=== PATIENT | female | born 1960 | race Two or more races ===

== ENCOUNTER 2018-02-21 14:50 | Emergency (ER) | payer SELFPAY ==
[2018-02-21] MEDS ORDERED: Morphine VIAL* 10 MG/ML 1 ML VIAL IV ONE (15:58)
[2018-02-21] MEDS ORDERED: NS 0.9% 1000 ML* 1,000 ML IV ONE (15:58)
[2018-02-21] MEDS ORDERED: Ondansetron ODT TAB* 4 MG PO ONE (15:58)
--- NOTE | 2018-02-21 16:08 | ED ---
Abdominal Pain/Female - HPI Summary HPI Summary: This is [place] documenting for Dr. Jonathon Dominguez MD. Pt is a 58 y/o F who presents to ED c/o upper abdominal pain. The pain began this morning and she rated it as an 8/10 in severity. She describes the pain as similar to that which she felt when she had pancreatitis a year ago. Pain radiates to her back. Notes dizziness and feeling cold all over her body per nurses report. Lying down exacerbates the symptoms. Denies constipation, nausea , and vomiting. - History of Current Complaint Chief Complaint: EDAbdPain Stated Complaint: SICKNESS/DIZZINESS/COLD Hx Obtained From: Patient Onset/Duration: Lasting Hours Severity Currently: Severe Pain Intensity: 8 Pain Scale Used: 0-10 Numeric Location: Epigastric Radiates: Yes Radiates to: Back Aggravating Factor(s): Other: - Lying down Associated Signs and Symptoms: Positive: Dizzy. Negative: Nausea, Vomiting, Diarrhea Allergies/Adverse Reactions: Allergies Allergy/AdvReac Type Severity Reaction Status Date / Time Penicillins Allergy Itching Verified 02/21/18 15:03 PMH/Surg Hx/FS Hx/Imm Hx GI History: Reports: Other GI Disorders - Pancreatitis Sensory History: Denies: Hx Deafness - Surgical History Surgery Procedure, Year, and Place: Cholecystectomy Infectious Disease History: No Infectious Disease History: Denies: Traveled Outside the [place] in Last 30 Days - Family History Known Family History: Positive: Hypertension, Diabetes - Social History Alcohol Use: None Substance Use Type: Reports: None Smoking Status (MU): Never Smoked Tobacco Review of Systems Positive: Abdominal Pain, Other - NEGATIVE: constipation. Negative: Vomiting, Diarrhea, Nausea Neurological: Other - Dizziness All Other Systems Reviewed And Are Negative: Yes Physical Exam - Summary Physical Exam Summary: VITAL SIGNS: Reviewed. GENERAL: Patient is a well-developed and nourished female who is lying comfortable in the stretcher. Patient is not in any acute respiratory distress. HEAD AND FACE: Normocephalic and atraumatic. EYES: PERRLA, EOMI x 2, No injected conjunctiva. EARS: Hearing grossly intact. Ear canals and tympanic membranes are WNL. MOUTH: Oropharynx within normal limits. NECK: Supple, trachea is midline, no adenopathy, no JVD. CHEST: Symmetric, no tenderness at palpation LUNGS: Clear to auscultation bilaterally. No wheezing or crackles. CVS: RRR, S1 and S2 present, no murmurs or gallops appreciated. ABDOMEN: Epigastric pain and LUQ tenderness. No signs of distention. Positive bowel sounds. No rebound no guarding, and no masses palpated. No abdominal bruit or pulsations. EXTREMITIES: FROM in all major joints, no edema, no cyanosis or clubbing. NEURO: Alert and oriented x 3. No acute neurological deficits. Speech is normal. SKIN: Dry and warm Triage Information Reviewed: Yes Vital Signs On Initial Exam: Initial Vitals Temp Pulse Resp BP Pulse Ox 98 F 55 16 138/81 100 02/21/18 15:06 02/21/18 15:06 02/21/18 15:06 02/21/18 15:06 02/21/18 15:06 Vital Signs Reviewed: Yes Diagnostics - Vital Signs Vital Signs Temp Pulse Resp BP Pulse Ox 02/21/18 15:06 98 F 55 16 138/81 100 - Laboratory Result Diagrams: 02/21/18 16:30 02/21/18 16:30 Lab Statement: Any lab studies that have been ordered have been reviewed, and results considered in the medical decision making process. - CT Abd/Pel CT CT Interpretation Completed By: Radiologist - 16:00. IMPRESSION: Approximate 6 probable hepatic cysts or potentially a hemangiomas however the findings are not entirely specific. If there is clinical concern for potential metastatic lesions further assessment with ultrasound would be suggested. Previous cholecystectomy may account for the mild intra and moderate extrahepatic biliary dilatation with the common bile duct measuring up to 1.2 cm diameter. No calcified stones or focal lesion evident along the course of the common bile duct. Mild pancreatic duct dilatation measuring up to 0.3 cm diameter. No additional abnormality of the pancreas evident to suggest acute pancreatitis. Negative for obstructive uropathy. Negative for lymphadenopathy. ED Physician reviewed this report. - EKG 16:28 Cardiac Rate: Bradycardia - 54 bpm EKG Rhythm: Sinus Bradycardia EKG Interpretation: Normal axis, no ST elevations Abdominal Pain Fem Course/Dx - Course Course Of Treatment: This patient is a 58-year-old female who presents to the emergency room with a chief complaint of upper abdominal pain. Patient has some mild nausea but no vomiting no diarrhea or constipation. She reports that the pain started this morning for which the patient took omeprazole without any significant relief. Therefore she decided to come to the emergency department for further workup and management. The patient reports that she has past medical history significant for pancreatitis and also she had a cholecystectomy. Pain is 7-8 out of 10. Blood test results without any significant abnormality. Abdominopelvic CT impression: IMPRESSION: #. Approximate 6 probable hepatic cysts or potentially a hemangiomas however the findings are not entirely specific. If there is clinical concern for potential metastatic lesions further assessment with ultrasound would be suggested. #. Previous cholecystectomy may account for the mild intra and moderate extrahepatic biliary dilatation with the common bile duct measuring up to 1.2 cm diameter. No calcified stones or focal lesion evident along the course of the common bile duct. Mild pancreatic duct dilatation measuring up to 0.3 cm diameter. No additional abnormality of the pancreas evident to suggest acute pancreatitis. #. Negative for obstructive uropathy. #. Negative for lymphadenopathy. In the ED course the patient was given IV fluids, Zofran for nausea and morphine for pain. After she was given these medications the patient 's symptoms have resolved. I discussed the findings and test results with the patient and the need to follow with primary care physician. It seems that the patient's symptoms are secondary to possibly gastritis. I did give the patient to [facility] to go since the pharmacies are closed. At this point the patient is hemodynamically stable alert and oriented 3. The patient she'll be going to follow with primary care physician however if she develops any more symptoms like abdominal pain, nausea vomiting diarrhea constipation she should return to the emergency department for further workup and management. - Diagnoses Provider Diagnoses: Upper abdominal pain Discharge - Sign-Out/Discharge Documenting (check all that apply): Patient Departure - Discharge - Discharge Plan Condition: Stable Disposition: HOME Prescriptions: Hydrocodone/Acetaminophen [[place] 5-325 Tablet] 1 each PO Q6H PRN #10 tablet MDD 4 PRN Reason: Pain Pantoprazole TAB (NF) [Protonix TAB (NF)] 40 mg PO DAILY #30 tab Patient Education Materials: Abdominal Pain (ED) Referrals: [facility] [place] [facility] REFERRAL [Outside] - 3 Days No Primary Care Phys,NOPCP [Primary Care Provider] - Additional Instructions: RETURN TO ED FOR ANY NEW OR WORSENING SYMPTOMS. - Billing Disposition and Condition Condition: STABLE Disposition: Home
[2018-02-21 16:41] LABS: ABS Basophils 0 10^3/ul (0-0.2); ABS Eosinophils 0.3 10^3/ul (0-0.6); ABS Lymphocytes 1.6 10^3/ul (1.0-4.8); ABS Monocytes 0.6 10^3/ul (0-0.8); ABS Neutrophils 5.3 10^3/ul (1.5-7.7); ABS Nucleated RBC 0 10^3/ul; Eosinophil % 4.1 % (0-6); Hematocrit 41 % (35-47); Hemoglobin 13.7 g/dl (12.0-16.0); Lymphocyte % 19.9 % (25-47); Mean Corpuscular HGB Conc 34 g/dl (31-36); Mean Corpuscular Hemoglobin 31 pg (27-31); Mean Corpuscular Volume 93 fL (80-97); Mean Platelet Volume 9.7 um3 (7.4-10.4); Nucleated Red Blood Cells % 0; Platelet Count 177 10^3/ul (150-450); Red Blood Count 4.36 10^6/ul (4.00-5.40); Red Cell Distribution Width 13 % (10.5-15); White Blood Count 7.8 10^3/ul (3.5-10.8)
[2018-02-21 16:59] LABS: EGFR Non-African American 109.7 (>60)
[2018-02-21] MEDS ORDERED: Iohexol 300* (CONTRAST) 10 ML SDV IV ONE (17:07)
--- NOTE | 2018-02-21 18:37 | RAD ---
INDICATION: Upper abdominal pain. Dizziness. History of pancreatitis. Post cholecystectomy. COMPARISON: No relevant prior exams available on the [facility] [place] for comparison. TECHNIQUE: Multidetector CT images were obtained from the lung bases to the ischial tuberosities with 81 mL Omnipaque 300 IV and oral contrast. Multiplanar reformation. REPORT: Unremarkable visualized inferior thorax. Approximate 6 focal hypodense hepatic lesions are present with most too small to accurately characterize. Far dominant 2.0 x 2.2 cm lesion at the caudal aspect of the RIGHT posterior hepatic segment demonstrates a lobular margin and water density without appreciable enhancement most consistent with a benign cyst. Previous cholecystectomy may account for the mild intra and moderate extrahepatic biliary dilatation with the common bile duct measuring up to 1.2 cm diameter. No calcified stones or focal lesion evident along the course of the common bile duct. Mild pancreatic duct dilatation measuring up to 0.3 cm diameter. No additional abnormality of the pancreas evident. Unremarkable spleen. Negative for CT abnormality of the upper GI, small bowel, or retrocecal appendix. Unremarkable colon with moderate retained stool at the ascending and transverse segments. Negative for ascites, free air, hernias. Normal adrenal glands. Symmetric nephrograms and pyelograms. Negative for hydronephrosis. A few small hypodense cortical lesions are noted at the posterior midpole of the LEFT kidney too small to accurately characterize but most suggestive of benign cysts. Unremarkable nondilated ureters and distended urinary bladder. The uterus is not visualized likely reflecting prior hysterectomy. Unremarkable adnexal regions. Negative for lymphadenopathy. Unremarkable abdominal aorta and iliac arteries. Physiologic distention of the IVC. Negative for suspicious osseous lesions. IMPRESSION: #. Approximate 6 probable hepatic cysts or potentially a hemangiomas however the findings are not entirely specific. If there is clinical concern for potential metastatic lesions further assessment with ultrasound would be suggested. #. Previous cholecystectomy may account for the mild intra and moderate extrahepatic biliary dilatation with the common bile duct measuring up to 1.2 cm diameter. No calcified stones or focal lesion evident along the course of the common bile duct. Mild pancreatic duct dilatation measuring up to 0.3 cm diameter. No additional abnormality of the pancreas evident to suggest acute pancreatitis. #. Negative for obstructive uropathy. #. Negative for lymphadenopathy.
[2018-02-21] MEDS ORDERED: Lidocaine 2% VISCOUS* 15 ML UDC PO ONE (19:01)
[2018-02-21] MEDS ORDERED: Al Hydrox/Mg Hydrox/Simet LIQ* 30 ML UDC PO ONE (19:01)
[2018-02-21 19:12] LABS: Urine Appearance Clear; Urine Blood Negative (Negative); Urine Color Straw; Urine Ketones Negative (Negative); Urine Protein Negative (Negative); Urine Specific Gravity 1.005 (1.010-1.030); Urine Urobilinogen Negative (Negative)
[2018-02-21] MEDS ORDERED: Pantoprazole TAB (NF) 40 MG TAB PO ONE (19:29)
[2018-02-21] MEDS ORDERED: HYDROcodone/ACETAMIN 5-325 MG* 1 TAB PO ONE (19:29)
[2018-02-21 20:07] VITALS: BP 156/73
== END 2018-02-21 20:08 | disposition home or self-care (01) ==
LOC: ED 14:50
DX: R10.10 Upper abdominal pain, unspecified (principal); K76.89 Other specified diseases of liver; K83.8 Other specified diseases of biliary tract; R00.1 Bradycardia, unspecified; Z88.0 Allergy status to penicillin; Z90.49 Acquired absence of other specified parts of digestive tract
CPT/HCPCS: 36415; 74177; 80053; 81003; 82150; 82550; 83690; 83880; 84484; 85025; 86140; 93005; 96361; 96374; 99283; A9270-GY; J2270; Q9967